=== PATIENT | male | born 1980 | race Caucasian/White ===

== ENCOUNTER 2023-11-07 10:11 | Outpatient (REF) | payer MEDICAID, SELFPAY ==
[2023-11-07 11:04] LABS: B Type Natriuretic Peptide 36 pg/mL (<100)
[2023-11-07 11:19] LABS: Anion Gap 13 (12-20); Blood Urea Nitrogen 13 mg/dL (9-16); Calcium 9.8 mg/dL (8.4-10.2); Carbon Dioxide 29 mmol/L (22-29); Chloride 103 mmol/L (96-108); Estimated Glomerular Filt Rate > 60; Glucose Random 103 mg/dL (60-115); Potassium 4.1 mmol/L (3.3-5.1); Sodium 141 mmol/L (135-145)
[2023-11-07 11:29] LABS: TSH reflex Free T4 1.63 uIU/mL (0.32-4.0)
[2023-11-07 12:48] LABS: Appearance Urine Clear; Color Urine Yellow; Glucose Urine UA Negative (Negative); Leukocyte Esterase Urine Negative (Negative); Nitrite Urine Negative (Negative); Specific Gravity - Urine 1.015 (1.005-1.025); Urine Blood Negative (Negative); Urine Ketones Negative (Negative); Urine Protein Negative (Neg-Trace)
[2023-11-07 12:55] LABS: Bacteria Urine None Seen (None Seen); Hyaline Casts Urine 0-2 /LPF (0-2); RBC Urine 0-2 /HPF (0-2); Squamous Epithelial Cell Urine 0-2 /HPF (0-2); WBC Urine 0-5 /HPF (0-5)
== END 2023-11-07 10:12 | disposition home or self-care (01) ==
LOC: HO.LAB 10:11
PROVIDERS: Visit Provider Emergency Medicine
DX: R03.0 Elevated blood-pressure reading, without diagnosis of hypertension (principal)
CPT/HCPCS: 36415; 80048; 81001; 83880; 84443

== ENCOUNTER 2023-12-05 13:40 | Outpatient (REF) | payer MEDICAID, SELFPAY ==
--- NOTE | ~2023-12-05 | US_ITS ---
EXAMINATION: US THYROID CLINICAL INFORMATION: Tenderness over right anterior neck/thyroid, with globus sensation. COMPARISON: None available. TECHNIQUE: Linear transducer grayscale and color Doppler examination with attention to the region of the thyroid. FINDINGS: SIZE: Measurements of the thyroid lobes and nodules are given in sagittal, anteroposterior and transverse dimensions respectively. Right Thyroid Lobe: 5.2 x 2.0 x 1.4 cm, volume 7.6 mL. Parenchyma: The gland echotexture is homogeneous. Thyroid vascularity is normal. Left Thyroid Lobe: 4.6 x 1.8 x 1.2 cm, volume 4.7 mL. Parenchyma: The gland echotexture is homogeneous. Thyroid vascularity is normal. Isthmus: 0.1 cm in maximum AP dimension. No focal thyroid nodule is seen. NODES: No lymphadenopathy is seen in the tissue surrounding the thyroid gland. US/US thyroid IMPRESSION: Unremarkable thyroid ultrasound. ACR TI-RADS RECOMMENDATION REFERENCE: Ultrasound-guided fine-needle aspiration, followup ultrasound, no further follow up. * TR1 (0 point) and TR2 (2 points): No FNA or follow up. * TR3 (3 points): FNA if more than or equal to 2.5 cm in maximum dimension, followup ultrasound in 1, 3 and 5 years if 1.5 to 2.4 cm in maximum dimension. * TR4 (4-6 points): FNA if more than or equal to 1.5 cm in maximum dimension, followup ultrasound in 1, 2, 3 and 5 years if 1 to 1.4 cm in maximum dimension. * TR5 (more than or equal to 7 points): FNA if more than or equal to 1 cm in maximum dimension, followup ultrasound every year for 5 years if 0.5 to 0.9 cm in maximum dimension. * TR3, TR4 or TR5 nodules that are below the size threshold for followup receive no follow up.
== END 2023-12-05 13:41 | disposition home or self-care (01) ==
LOC: HO.US 13:40
PROVIDERS: Visit Provider Emergency Medicine
DX: R09.A2 Foreign body sensation, throat (principal); M54.2 Cervicalgia
CPT/HCPCS: 76536

== ENCOUNTER 2024-01-22 12:09 | Outpatient (REF) | payer MEDICAID, SELFPAY | END 2024-01-22 12:10 | disposition home or self-care (01) | LOC: HO.HHCLNP 12:09 | PROVIDERS: Visit Provider Internal Medicine | DX: Z13.89 Encounter for screening for other disorder (principal) | CPT/HCPCS: 82274 ==

== ENCOUNTER 2024-01-22 15:08 | Outpatient (REF) | payer MEDICAID, SELFPAY ==
--- NOTE | ~2024-01-22 | XR_ITS ---
EXAMINATION: XR ABDOMEN COMPLETE CLINICAL INDICATION: Generalized abdominal pain, slow transit, constipation, distention. COMPARISON: None available. TECHNIQUE: 2 views of the abdomen. FINDINGS: Nonobstructive bowel gas pattern. No significant stool burden. No acute osseous findings. No unusual soft tissue calcifications. XR/XR abdomen min 2V IMPRESSION: Nonobstructive bowel gas pattern. No significant stool burden.
[2024-01-22 16:08] LABS: MANUAL DIFF FLAG NO
[2024-01-22 16:10] LABS: Basophils Percent Auto 0.5 % (0-2); Eosinophils Absolute Auto 0.1 X10*3/uL (0.0-0.4); Eosinophils Percent Auto 0.6 % (0-4); Hematocrit 45.4 % (42.0-52.0); Imm Gran Abs Auto 0.02 X10*3/uL (0.00-0.03); Imm Gran Pct Auto 0.3 % (0.0-0.4); Lymphocytes Absolute Auto 2.5 X10*3/uL (1.2-4.9); Lymphocytes Percent Auto 31.3 % (20-40); Mean Corpuscular HGB Conc 35.2 g/dl (31.0-36.0); Mean Corpuscular Hemoglobin 32.3 pg (27.0-33.0); Mean Corpuscular Volume 91.5 fL (80.0-98.0); Mean Platelet Volume 10.8 fL (9.4-12.4); Monocytes Absolute Auto 0.5 X10*3/uL (0.1-1.2); Monocytes Percent Auto 6.6 % (2-11); Neutrophils Absolute Auto 4.8 x10*3/uL (2.0-8.3); Neutrophils Percent Auto 60.7 % (45-73); Platelet Count 244 X10*3/uL (160-400); Red Blood Count 4.96 X10*6/uL (4.60-5.80); Red Cell Distribution Width 11.6 % (11.0-16.0); White Blood Count 7.8 X10*3/uL (4.8-10.8)
== END 2024-01-22 15:09 | disposition home or self-care (01) ==
LOC: HO.HHCL 15:08
PROVIDERS: Visit Provider Internal Medicine
DX: R10.84 Generalized abdominal pain (principal); K59.01 Slow transit constipation
CPT/HCPCS: 36415; 74019; 85025

== ENCOUNTER 2024-01-28 13:56 | Outpatient (REF) | payer MEDICAID, SELFPAY ==
--- NOTE | ~2024-01-28 | XR_ITS ---
EXAMINATION: XR ABDOMEN KUB CLINICAL INDICATION: Evaluate for kidney stone COMPARISON: None available. TECHNIQUE: AP view of the abdomen. FINDINGS: The bowel gas pattern is normal with no evidence of ileus or obstruction. No unusual soft tissue calcifications are noted. The bones are unremarkable. XR/XR KUB IMPRESSION: Unremarkable abdomen exam. No radiopaque renal calculi seen..
== END 2024-01-28 13:57 | disposition home or self-care (01) ==
LOC: HO.HHCX 13:56
PROVIDERS: Visit Provider Internal Medicine
DX: R10.9 Unspecified abdominal pain (principal)
CPT/HCPCS: 74018

== ENCOUNTER 2024-02-06 11:12 | Outpatient (REF) | payer MEDICAID, SELFPAY ==
[2024-02-06 13:49] LABS: Appearance Urine Clear; Color Urine Yellow; Glucose Urine UA Negative (Negative); Leukocyte Esterase Urine Negative (Negative); Nitrite Urine Negative (Negative); Urine Blood Negative (Negative); Urine Ketones Negative (Negative); Urine Protein Negative (Neg-Trace)
[2024-02-06 13:58] LABS: Alanine Aminotransferase 19 U/L (0-40); Albumin Level 4.6 g/dL (3.5-5.0); Alkaline Phosphatase 63 U/L (39-117); Aspartate Amino Transferase 21 U/L (5-37); Bilirubin Direct 0.4 mg/dL (0.0-0.5)
[2024-02-06 14:18] LABS: TSH reflex Free T4 0.86 uIU/mL (0.32-4.0)
[2024-02-06 14:22] LABS: Folate 13.2 ng/mL (> or = 4.0); Vitamin B12 546 pg/mL (200-900)
[2024-02-07 09:01] LABS: HBS Num1 0.43 mIU/mL (0-7.99); HBc Num1 0.09 S/CO (0.00-0.79); HBsAGNum1 0.32 S/CO (0.00-0.99); Hepatitis A Antibody IgM 0.12 Index (0-0.79); Hepatitis B Core Antibody Nonreactive (Nonreactive); Hepatitis B Surface Antigen Negative (Negative); ~HepC Num1 0.16 S/CO (0.00-0.79); ~Hepatitis A Antibody IgM Nonreactive (Nonreactive); ~Hepatitis B Surface Antibody NONREACTIVE (Nonreactive); ~Hepatitis C Antibody Nonreactive (Nonreactive)
[2024-02-10 17:38] LABS: VITAMIN D (1,25 OH) D3 71 pg/mL; Vit D (1,25-Dihydroxy) Total 71 pg/mL (18-72); Vitamin D (1,25 OH) D2 <8 pg/mL
== END 2024-02-06 11:13 | disposition home or self-care (01) ==
LOC: HO.HHCL 11:12
PROVIDERS: Visit Provider Emergency Medicine
DX: M85.88 Other specified disorders of bone density and structure, other site (principal)
CPT/HCPCS: 36415; 80076; 81003; 82607; 82652; 82746; 84443; 86704; 86706; 86709; 86803; 87340

== ENCOUNTER 2024-02-11 14:45 | Outpatient (REF) | payer MEDICAID, SELFPAY ==
--- NOTE | ~2024-02-11 | MR_ITS ---
EXAMINATION: MR LUMBAR SPINE WITHOUT CONTRAST CLINICAL INFORMATION: Spondylosis. Evaluate for nerve entrapment. COMPARISON: No relevant prior imaging. TECHNIQUE: MRI of the lumbar spine was obtained using routine sequences without contrast. FINDINGS: Alignment is normal. Vertebral body heights are preserved. There are type I degenerative endplate changes at L5-S1. There is loss of intervertebral disc height and T2 signal intensity at L4-L5 and L5-S1 related to disc degeneration. The tip of the conus medullaris is located at L1-L2. No mass effect on the conus. Visualized distal cord signal intensity is normal. At L1-L2, L2-L3, and L3-L4 the annular contours are normal. No canal or neuroforaminal compromise at these 3 levels. At L4-L5 there is a bulging disc. Bilateral facet degenerative change. No canal stenosis. Several abutment of the left traversing L5 nerve roots. No foraminal nerve root compression. At L5-S1 there is a left subarticular extrusion with 1.6 cm superior subligamentous extension of extruded disc material causing asymmetric compression of the left traversing S1 nerve roots. There is also partial effacement of perineural fat causing mild mass effect on both L5 foraminal nerve roots. Limited visualization of the retroperitoneal anatomy reveals no abnormal finding. Psoas and paraspinal muscles are symmetric. MR/MR lumbar spine wo con IMPRESSION: There is a left subarticular extrusion at L5-S1 with superior subligamentous extension of extruded disc material causing asymmetric compression of the left traversing S1 nerve roots. There is also partial effacement of perineural fat at this level causing mild mass effect on both L5 foraminal nerve roots. Otherwise no substantial mass effect on the traversing or foraminal nerve roots elsewhere within the lumbar spine. No canal stenosis.
== END 2024-02-11 14:46 | disposition home or self-care (01) ==
LOC: HO.MRI 14:45
PROVIDERS: Visit Provider Emergency Medicine
DX: M85.88 Other specified disorders of bone density and structure, other site (principal)
CPT/HCPCS: 72148

== ENCOUNTER 2024-03-13 10:52 | Outpatient (REF) | payer MEDICAID, SELFPAY ==
[2024-03-13 13:55] LABS: CT PCR NOT DETECTED (Not Detect.); NG PCR NOT DETECTED (Not Detect.)
== END 2024-03-13 10:53 | disposition home or self-care (01) ==
LOC: HO.HHCL 10:52
PROVIDERS: Visit Provider Internal Medicine
DX: F52.4 Premature ejaculation (principal)
CPT/HCPCS: 0353U

== ENCOUNTER → 2024-07-22 13:20 | Outpatient (REF) | payer MEDICAID, SELFPAY ==
--- NOTE | 2024-07-22 13:25 | CA_ITS ---
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 The calculated ejection fraction is 59% by biplane method. - Moderately increased right ventricular cavity size. - Suspect severe pulmonary valve regurgitation. - Mild pulmonary hypertension is present. Findings Procedure Information Contrast agent, definity, is being given per protocol without apparent complications. Left Ventricle Normal left ventricular cavity size. There is normal left ventricular wall thickness. The left ventricular systolic function is normal. The calculated ejection fraction is 59% by biplane method. There is no evidence of regional wall motion abnormalities. There is paradoxical septal motion consistent with post-operative status. Diastolic function is normal for age. Right Ventricle Moderately increased right ventricular cavity size. There is normal right ventricular systolic function. Atria The left atrium is normal in size. The right atrium is moderately dilated. Aortic Valve There is a normal trileaflet aortic valve. There is no aortic valve stenosis. There is trace (trivial) aortic valve regurgitation. Mitral Valve The mitral valve appears normal. There is trace mitral valve regurgitation. There is no mitral valve stenosis. Pulmonic Valve The pulmonic valve was not well visualized. Suspect severe pulmonary valve regurgitation. Tricuspid Valve There is mild tricuspid valve regurgitation. Mild pulmonary hypertension is present. Great Vessels The asc aorta and aortic arch are normal in size. Venous The inferior vena cava is normal in size and collapses less than 50% with inspiration. Pericardium/Pleural There is a trivial pericardial effusion. Prior Study Comparison No prior study available for comparison. Measurements 2D Linear Measurements IVSd: 0.95 0.6-0.9/0.6-1.0 cm LVIDd: 4.19 3.9-5.3/4.2-5.9 cm LVIDd Index: 2.17 2.4-3.2/2.2-3.1 cm/m2 LVIDs: 2.77 2.0-3.6 cm LVPWd: 0.97 0.7-1.1 cm Ao Root: 3.80 2.1-3.5 cm LA Diam: 3.70 2.7-3.8/3.0-4.0 cm LAIDs Index: 1.92 1.5-2.3 cm/m2 LV Mass: 161.19 67-162/88-224 g LV Mass Index: 83.52 43-95/49-115 g/m2 LVOT Diam: 2.50 3.0+(-)1.3 cm 2D Systolic Function EF 4C: 56.60 >55% EF 2C: 61.40 >55% EF BiP: 59.10 >55% Mitral Valve MV Pk E: 0.90 MV PK A: 0.54 MV Decel Time: 202.00 E/A: 1.70 E'Lateral: 13.40 E'Medial: 11.60 E/E' Med: 7.70 E/E' Lat: 6.70 PHT: 59.00 MVA PHT: 3.73 Decel Nicol[place]: 4.43 Aortic Valve AoV Pk Nicholas: 1.18 AoV Mn Nicholas: 0.76 AoV VTI: 0.18 AoV Pk Grad: 6.00 Aov Mn Grad: 3.00 HIPOLITO Cont.VTI: 3.94 LVOT LVOT Pk Nicholas: 0.84 LVOT Mn Nicholas: 0.58 LVOT VTI: 0.14 LVOT Pk Grad: 3.00 LVOT Mn Grad: 2.00 LVOT Diam: 2.50 LVOT Area: 4.91 Diastolic Function MV Pk E: 0.90 MV Pk A: 0.54 E/A: 1.70 E'Medial: 11.60 E/E' Med: 7.70 E' Laterial: 13.40 E/E' Lat: 6.70 Right Ventricle TAPSE (mm): 20.00 TVS' Nicholas: 13.90 Tricuspid Valve TR Pk Nicholas: 3.23 TR Pk Grad: 42.00 RA Press: 8.00 RVSP: 50.00 Great Vessels Aorta Ao Root-2D: 3.80 2.0-3.7 cm Ao Asc: 3.30 2.1-3.4 cm Ao Arch: 2.90 Pulmonary Valve PV Pk Nicholas: 2.19 PV Min Nicholas: 1.48 Peak PV Grad: 19.00 PV Mn Grad: 10.00 Shunting QP:QS: 1.50 Updated in Other Vendor System with Status of Final Joseph Calvo MD electronically signed on 07/23/2024 10:46:16 AM with status of Final
== END ==
LOC: HO.CARD 13:20
PROVIDERS: PCP Internal Medicine; Visit Provider Internal Medicine
DX: Q21.3 Tetralogy of Fallot (principal)
CPT/HCPCS: 93306; Q9957

== ENCOUNTER → 2024-07-22 13:25 | Outpatient (BNV) | payer MEDICAID, SELFPAY | PROVIDERS: PCP Internal Medicine; Visit Provider Internal Medicine | DX: Q21.3 Tetralogy of Fallot (principal); Z87.74 Personal history of (corrected) congenital malformations of heart and circulatory system; I27.20 Pulmonary hypertension, unspecified; I36.1 Nonrheumatic tricuspid (valve) insufficiency; I37.1 Nonrheumatic pulmonary valve insufficiency | CPT/HCPCS: 93303; 93320 ==

== ENCOUNTER 2024-09-07 16:02 | Outpatient (REF) | payer MEDICAID, SELFPAY ==
[2024-09-07 18:07] LABS: Anion Gap 13 (12-20); Blood Urea Nitrogen 16 mg/dL (9-16); Calcium 9.9 mg/dL (8.4-10.2); Carbon Dioxide 28 mmol/L (22-29); Chloride 106 mmol/L (96-108); Estimated Glomerular Filt Rate > 60; Glucose Random 94 mg/dL (60-115); Potassium 3.6 mmol/L (3.3-5.1); Sodium 143 mmol/L (135-145)
== END 2024-09-07 16:03 | disposition home or self-care (01) ==
LOC: HO.HHCL 16:02
PROVIDERS: Visit Provider Internal Medicine
DX: I27.20 Pulmonary hypertension, unspecified (principal)
CPT/HCPCS: 36415; 80048